=== PATIENT | female | born 1970 | race Caucasian/White ===

== ENCOUNTER 2017-10-15 18:37 | Emergency (ER) | payer BC ==
[~2017-10-15] VITALS: Ht 175.3 cm; Wt 93.1 kg
[2017-10-15 19:45] LABS: URINE HCG NEGATIVE (NEG)
[2017-10-15 19:52] LABS: BASOPHILS % (AUTO) 0.3 % (0-1); EOSINOPHILS % (AUTO) 0 % (0-6); HEMATOCRIT 39.5 % (35.0-45.0); HEMOGLOBIN 13.2 g/dl (12.0-16.0); LYMPHOCYTES # (AUTO) 1.5 X10'3 (1.1-4.8); LYMPHOCYTES % (AUTO) 8.8 % (21-51); MEAN CORPUSCULAR HEMOGLOBIN 29.8 PG (27.0-31.0); MEAN CORPUSCULAR HGB CONC 33.5 % (33.0-36.5); MEAN CORPUSCULAR VOLUME 88.9 FL (78-98); MEAN PLATELET VOLUME 8.8 FL (7.4-10.4); MONOCYTES # (AUTO) 0.6 X10'3 (0-0.9); MONOCYTES % (AUTO) 3.5 % (2-12); NEUTROPHILS # (AUTO) 14.8 X10'3 (1.8-7.7); NEUTROPHILS % (AUTO) 87.4 % (42-75); PLATELET COUNT 241 X10'3 (140-440); RED BLOOD COUNT 4.44 X10'6 (4.20-5.60); RED CELL DISTRIBUTION WIDTH 13.9 % (11.5-14.5)
[2017-10-15 20:00] LABS: CLARITY,URINE SLIGHTLY CLOUDY (Clear); COLOR,URINE YELLOW (Yellow); GLUCOSE, URINE NEGATIVE (Neg); KETONES,URINE NEGATIVE (Neg); LEUKOCYTE ESTERASE ,URINE NEGATIVE (Neg); NITRITES, URINE NEGATIVE (Neg); OCCULT BLOOD,URINE MODERATE (Neg); PH,URINE 5.5 (4.8-8.0); PROTEIN,URINE NEGATIVE (Neg); UROBILINOGEN,URINE 0.2 E.U/dL (0.2-1.0)
[2017-10-15 20:00] LABS: PROTHROMBIN TIME 10.3 SECONDS (9.0-12.0)
[2017-10-15 20:02] LABS: UA COLLECTION TYPE CLN CATCH MIDSTREAM
[2017-10-15 20:07] LABS: MUCUS STRANDS MANY /LPF (Neg); SQUAMOUS EPITHELIAL CELL,UR MANY /LPF (FEW)
[2017-10-15 20:08] LABS: BACTERIA,URINE 2+ /HPF (Neg); FINE GRANULAR CAST 0-3 /LPF (NEGATIVE); TRANSITIONAL EPI CELLS,URINE FEW /HPF
[2017-10-15 20:09] LABS: RBC,URINE 0-2 /HPF (0-2); RENAL CELLS, URINE FEW /HPF
[2017-10-15 20:10] LABS: ALANINE AMINOTRANSFERASE 24 U/L (12-78); ALBUMIN 4.1 G/DL (3.4-5.0); ALBUMIN/GLOBULIN RATIO 1.1 (1.1-1.5); ALKALINE PHOSPHATASE 82 IU/L (46-116); ANION GAP 9 (8-16); ASPARTATE AMINO TRANSFERASE 19 U/L (10-37); BLOOD UREA NITROGEN 25 MG/DL (7-18); BUN/CREATININE RATIO 30.1 (6.6-38.0); CHLORIDE 106 MMOL/L (99-107); CREATININE 0.83 MG/DL (0.40-0.90); GLUCOSE 126 MG/DL (70-104); POTASSIUM 4.4 MMOL/L (3.5-5.1); SODIUM 141 MMOL/L (135-145); TOTAL CARBON DIOXIDE 26.2 MMOL/L (24-32); TOTAL PROTEIN 7.8 G/DL (6.4-8.2); eGFR 73 ML/MIN
[2017-10-15] MEDS ORDERED: ondansetron/PF 4mg/2ml inj IV ONE (21:10)
[2017-10-15] MEDS ORDERED: famotidine/PF 10 mg/ml inj IV ONE (21:10)
[2017-10-15] MEDS ORDERED: normal saline 1000ML IV soln IVB ONE (21:10)
[2017-10-16 01:01] LABS: CLARITY,URINE Clear (Clear); COLOR,URINE Yellow (Yellow); GLUCOSE, URINE Negative (Neg); KETONES,URINE Negative (Neg); LEUKOCYTE ESTERASE ,URINE Trace (Neg); NITRITES, URINE Negative (Neg); OCCULT BLOOD,URINE Moderate (Neg); PROTEIN,URINE Negative (Neg); UROBILINOGEN,URINE 0.2 E.U/dL (0.2-1.0)
[2017-10-16 01:04] LABS: UA COLLECTION TYPE CLN CATCH MIDSTREAM
[2017-10-16 01:22] LABS: MUCUS STRANDS FEW /LPF (Neg); SQUAMOUS EPITHELIAL CELL,UR MODERATE /LPF (FEW)
[2017-10-16 01:23] LABS: BACTERIA,URINE 1+ /HPF (Neg); RBC,URINE 0-2 /HPF (0-2); WBC,URINE 0-4 /HPF (0-4)
[2017-10-16] MEDS ORDERED: iohexol 300mg/ml 100ml inj. ONE (01:58)
[2017-10-16] MEDS ORDERED: ONDA4TAB9 PO (03:51)
[2017-10-16] MEDS ORDERED: HYDR-3965 PO (03:51)
[2017-10-16 04:14] VITALS: BP 115/71
== END 2017-10-16 04:18 | disposition home or self-care (01) ==
LOC: ER 18:40
DX: R10.2 Pelvic and perineal pain (principal); R10.32 Left lower quadrant pain; R10.84 Generalized abdominal pain; Z90.49 Acquired absence of other specified parts of digestive tract; Z87.42 Personal history of other diseases of the female genital tract
CPT/HCPCS: 36415; 74177; 76830; 80053; 81001; 81025; 85025; 85610; 87088; 96372; 96374; 96375; 99285; J2270; J2405; J3490; J7030; Q9967; 96361

== ENCOUNTER 2023-12-03 20:17 | Emergency (ER) | payer BC ==
[~2023-12-03] VITALS: Ht 175.3 cm; Wt 114.5 kg
[2023-12-03] MEDS: dexamethasone sod phosphate 10mg/ml inj IM STA (22:54)
[2023-12-03] MEDS: HYDROcodone/acetaminophen 10/325mg tab PO ONE (22:55)
[2023-12-03] MEDS ORDERED: HYDR-3972 PO (23:54)
[2023-12-03] MEDS ORDERED: PRED20TA PO (23:54)
[2023-12-03] MEDS ORDERED: METH-798 PO (23:56)
[2023-12-04 00:01] VITALS: BP 135/84; PULSE 79; RESP 17; TEMP 98; O2SAT 98
== END 2023-12-04 00:07 | disposition home or self-care (01) ==
LOC: ER 20:19
DX: M54.17 Radiculopathy, lumbosacral region (principal); Z88.5 Allergy status to narcotic agent; Z79.899 Other long term (current) drug therapy
CPT/HCPCS: 96372; 99283; J1100

== ENCOUNTER 2024-11-07 09:07 | Emergency (ER) | payer BC, OTHER ==
[~2024-11-07] VITALS: Ht 175.3 cm; Wt 117.2 kg
[~2024-11-07 09:07] MED LIST: METH-798 PO
[2024-11-07 09:18] VITALS: BP 124/67; PULSE 71; RESP 18; O2SAT 98
[2024-11-07] MEDS ORDERED: silver sulfadiazine cream 400gm jar TP ONE (09:45)
[2024-11-07] MEDS: silver sulfadiazine cream 50gm TP ONE (09:59)
[2024-11-07 10:07] VITALS: TEMP 98.5
== END 2024-11-07 10:09 | disposition home or self-care (01) ==
LOC: ER 09:07
DX: T22.211A Burn of second degree of right forearm, initial encounter (principal); Z88.5 Allergy status to narcotic agent; Z90.49 Acquired absence of other specified parts of digestive tract; Z98.890 Other specified postprocedural states; T31.0 Burns involving less than 10% of body surface; X19.XXXA Contact with other heat and hot substances, initial encounter; Y93.89 Activity, other specified; Y92.89 Other specified places as the place of occurrence of the external cause; Y99.8 Other external cause status
CPT/HCPCS: 16020; 99282; 99283; A6258